=== PATIENT | female | born 1955 | race Hispanic/Latino ===

== ENCOUNTER 2020-05-26 02:34 | Emergency (ER) | payer BC ==
[2020-05-26] MEDS ORDERED: SODIUM CHLORIDE 0.9% 1000 ML 1,000 ML IV ONE (03:07)
[2020-05-26] MEDS ORDERED: METOPROLOL TARTRATE 5 MG/5 ML INJ IV ONE (03:07)
--- NOTE | 2020-05-26 03:13 | Emergency Department Report ---
HPI - General Chief Complaint: Chest Pain Time Seen by Provider: 05/26/20 02:55 - HPI HPI: Room 25 The patient is a 64-year-old female present with a chief complaint of SVT. The patient states she was in her usual state of health this evening when she turned over in bed she began feeling her heartbeat quickly. The patient has a history of SVT and states her last episode occurred approximately 2012. Patient states she is been compliant with all of her medication. The patient attempted vagal maneuvers at home but they were unsuccessful so she eventually called 911. EMS arrived and found the patient tachycardic with a heart rate of 200 bpm. EMS administered adenosine 12 mg IV and SVT broke and the patient's heart rate decreased to 112. Patient states she feels much better currently denies chest pain or shortness of breath. Patient denies any complaints ED Past Medical Hx - Past Medical History Previous Medical History?: Yes Hx Hypertension: Yes Hx Diabetes: Yes Hx Asthma: Yes Additional medical history: SVT, - Surgical History Additional Surgical History: Tonsillectomy, wisdom tooth extraction - Family History Family history: no significant - Social History Smoking Status: Never Smoker Substance Use Type: None (Denies illicit drug use), Alcohol (Rarely) ED Review of Systems ROS: Stated complaint: SVT/SOB Other details as noted in HPI Constitutional: no symptoms reported Eyes: denies: eye pain ENT: denies: throat pain Respiratory: denies: shortness of breath Cardiovascular: palpitations Endocrine: no symptoms reported Gastrointestinal: denies: abdominal pain Genitourinary: denies: dysuria Musculoskeletal: denies: back pain Skin: denies: lesions Neurological: denies: headache Physical Exam - Physical Exam Vital Signs: Vital Signs 05/26/20 05/26/20 02:41 02:42 Temperature 98.5 F Pulse Rate 112 H Respiratory 20 22 Rate Blood Pressure 129/41 [Right] O2 Sat by Pulse 98 Oximetry Physical Exam: GENERAL: The patient is well-developed well-nourished female lying on stretcher not appearing to be in acute distress. [] HEENT: Normocephalic. Atraumatic. Extraocular motions are intact. Patient has moist mucous membranes. NECK: Supple. Trachea midline CHEST/LUNGS: Clear to auscultation. There is no respiratory distress noted. HEART/CARDIOVASCULAR: Regular. There is tachycardia. There is no gallop rub or murmur. ABDOMEN: Abdomen is soft, nontender. Patient has normal bowel sounds. There is no abdominal distention. SKIN: There is no rash. There is no edema. There is no diaphoresis. NEURO: The patient is awake, alert, and oriented. The patient is cooperative. The patient has normal speech MUSCULOSKELETAL: There is no evidence of acute injury. ED Course Vital Signs 05/26/20 05/26/20 02:41 02:42 Temperature 98.5 F Pulse Rate 112 H Respiratory 20 22 Rate Blood Pressure 129/41 [Right] O2 Sat by Pulse 98 Oximetry ED Medical Decision Making - Lab Data Result diagrams: 05/26/20 03:13 05/26/20 03:13 - EKG Data -: EKG Interpreted by Me EKG shows normal: sinus rhythm Rate: tachycardia (112 bpm) - EKG Data When compared to previous EKG there are: previous EKG unavailable Interpretation: other (No ischemic changes seen) - Differential Diagnosis SVT, DKA, dehydration Critical care attestation.: If time is entered above; I have spent that time in minutes in the direct care of this critically ill patient, excluding procedure time. ED Disposition Clinical Impression: SVT (supraventricular tachycardia), Hypomagnesemia Disposition: DC-01 TO HOME OR SELFCARE Is pt being admited?: No Does the pt Need Aspirin: No Condition: Stable Instructions: Hypomagnesemia, Supraventricular Tachycardia, Adult, [id number] Additional Instructions: Return to the emergency department should you develop worsening symptoms, in ability to tolerate food or liquids, high fever or any other concerns Referrals: RUTHY DUENAS MD [Primary Care Provider] - 3-5 Days Time of Disposition: 04:32
[2020-05-26 03:42] LABS: Basophils % (Auto) 0.9 % (0.0-1.8); Eosinophils # (Auto) 0.2 K/mm3 (0.0-0.4); Hemoglobin 14.1 gm/dl (10.1-14.3); Lymphocytes # (Auto) 1.3 K/mm3 (1.2-5.4); Lymphocytes % (Auto) 25.9 % (13.4-35.0); Monocytes # (Auto) 0.4 K/mm3 (0.0-0.8); Monocytes % (Auto) 8.4 % (0.0-7.3)
[2020-05-26 04:12] LABS: Free T4 (Free Thyroxine) 1.17 ng/dL (0.76-1.46)
[2020-05-26 04:14] LABS: Creatine Kinase MB 1.7 ng/mL (0.0-4.0)
[2020-05-26 04:16] LABS: Blood Urea Nitrogen 8 mg/dL (7-17); Calcium 9.1 mg/dL (8.4-10.2); Hemolysis Index 11
[2020-05-26] MEDS ORDERED: MAGNESIUM SULFATE 2 GM/50 ML BAG IV ONE (04:19)
[2020-05-26 04:23] LABS: BUN/Creatinine Ratio 11
[2020-05-26 04:26] LABS: Hematocrit 42.1 % (30.3-42.9); Mean Corpuscular HGB Conc 34 % (30-34); Mean Corpuscular Volume 94 fl (79-97); Platelet Count 103 K/mm3 (140-440); Red Blood Count 4.48 M/mm3 (3.65-5.03); Red Cell Distribution Width 15.4 % (13.2-15.2)
[2020-05-26 06:41] VITALS: BP 102/47
== END 2020-05-26 06:05 | disposition home or self-care (01) ==
LOC: ED 02:34
DX: I47.1 Supraventricular tachycardia (principal); E83.42 Hypomagnesemia; I10 Essential (primary) hypertension; E11.9 Type 2 diabetes mellitus without complications; J45.909 Unspecified asthma, uncomplicated; Z79.899 Other long term (current) drug therapy
CPT/HCPCS: 36415; 80048; 82550; 82553; 82805; 83735; 84439; 84443; 84484; 85025; 93005; 96361; 96365; 96375; 99284; J3475; J7030

== ENCOUNTER 2021-10-15 17:35 | Inpatient (IN) | payer BC, MEDICARE ==
[2021-10-15] MEDS ORDERED: fentaNYL 100 MCG/2 ML INJ ONE (17:48)
[2021-10-15] MEDS ORDERED: HEPARIN 10,000 UNITS/10 ML VIAL IV PRN (17:56)
[2021-10-15] MEDS ORDERED: AMIODARONE 900 MG in DEXTROSE 5% IN WATER 482 ML IV SCH (18:00)
[2021-10-15] MEDS: AMIODARONE 150 MG/3 ML INJ IV ONE ×3 (18:11→19:05)
[2021-10-15] MEDS ORDERED: SODIUM CHLORIDE 0.9% 1000 ML 1,000 ML IV ONE ×2 (18:21)
[2021-10-15 18:34] LABS: Basophils % (Auto) 0.7 % (0.0-1.8); Eosinophils # (Auto) 0.1 K/mm3 (0.0-0.4); Eosinophils % (Auto) 3.2 % (0.0-4.3); Hematocrit 41.2 % (30.3-42.9); Lymphocytes # (Auto) 1.1 K/mm3 (1.2-5.4); Lymphocytes % (Auto) 25.1 % (13.4-35.0); Mean Corpuscular HGB Conc 34 % (30-34); Mean Corpuscular Volume 93 fl (79-97); Monocytes # (Auto) 0.4 K/mm3 (0.0-0.8); Platelet Count 104 K/mm3 (140-440); Red Blood Count 4.43 M/mm3 (3.65-5.03); Red Cell Distribution Width 14.5 % (13.2-15.2)
[2021-10-15 18:57] LABS: Alanine Aminotransferase 27 units/L (7-56); Albumin 3.9 g/dL (3.9-5); BUN/Creatinine Ratio 19; Blood Urea Nitrogen 15 mg/dL (7-17); Calcium 9.6 mg/dL (8.4-10.2); Hemolysis Index 21
--- NOTE | 2021-10-15 19:29 | Emergency Department Report ---
ED Palpitations HPI - General Chief Complaint: Arrhythmia/Palpitations Stated Complaint: SVT Time Seen by Provider: 10/15/21 17:54 Source: patient, EMS Mode of arrival: Stretcher Limitations: No Limitations - History of Present Illness Initial Comments: Patient is 66-year-old female with history of paroxysmal SVT brought in by EMS with complaint of palpitations. EMS reports patient heart rate in the 180s on arrival and subsequently gave her 6 mg followed by 12 mg of adenosine without conversion to sinus rhythm. She reports 3 prior episodes of SVT that converted with either vagal maneuvers or with adenosine. She is followed by [facility]. Takes Cardizem nightly. - Related Data Allergies Allergy/AdvReac Type Severity Reaction Status Date / Time No Known Allergies Allergy Unverified 05/26/20 02:49 ED Review of Systems ROS: Stated complaint: SVT Other details as noted in HPI Constitutional: denies: chills, fever Respiratory: denies: cough, shortness of breath, wheezing Cardiovascular: palpitations Gastrointestinal: denies: abdominal pain, nausea, diarrhea Genitourinary: denies: urgency, dysuria, discharge Musculoskeletal: denies: back pain, joint swelling, arthralgia Skin: denies: rash, lesions Neurological: denies: headache, weakness, paresthesias Psychiatric: denies: anxiety, depression ED Past Medical Hx - Past Medical History Hx Hypertension: Yes Hx Diabetes: Yes Hx Asthma: Yes Additional medical history: SVT, - Surgical History Additional Surgical History: Tonsillectomy, wisdom tooth extraction - Social History Smoking Status: Never Smoker ED Physical Exam - General Limitations: No Limitations General appearance: alert, obese, other - Head Head exam: Present: atraumatic, normocephalic - Neck Neck exam: Present: normal inspection - Respiratory Respiratory exam: Present: normal lung sounds bilaterally. Absent: respiratory distress - Cardiovascular Cardiovascular Exam: Present: normal rhythm, tachycardia, normal heart sounds - GI/Abdominal GI/Abdominal exam: Present: soft. Absent: distended, tenderness - Neurological Exam Neurological exam: Present: alert, oriented X3 - Psychiatric Psychiatric exam: Present: normal affect, normal mood - Skin Skin exam: Present: warm, dry, intact, normal color ED Course Vital Signs 10/15/21 10/15/21 10/15/21 17:36 17:58 18:00 Temperature 98.2 F Pulse Rate 188 H 167 H 149 H Respiratory 22 24 20 Rate Blood Pressure 102/52 Blood Pressure 108/68 [Left] O2 Sat by Pulse 98 100 100 Oximetry 10/15/21 10/15/21 10/15/21 18:04 18:15 18:30 Temperature 98.5 F Pulse Rate 142 H 144 H 131 H Respiratory 18 22 14 Rate Blood Pressure 102/52 78/54 101/53 Blood Pressure [Left] O2 Sat by Pulse 99 99 100 Oximetry 10/15/21 10/15/21 10/15/21 18:41 18:45 19:01 Temperature Pulse Rate 132 H 137 H 148 H Respiratory 18 17 17 Rate Blood Pressure 129/54 123/57 Blood Pressure 101/53 [Left] O2 Sat by Pulse 99 100 100 Oximetry 10/15/21 19:11 Temperature Pulse Rate 148 H Respiratory 18 Rate Blood Pressure Blood Pressure 123/57 [Left] O2 Sat by Pulse 99 Oximetry ED Medical Decision Making - Lab Data Result diagrams: 10/15/21 18:20 10/15/21 18:20 - EKG Data -: EKG Interpreted by Me (Felicia fib with RVR, rate 157) EKG shows normal: QRS complexes, ST-T waves Rate: tachycardia - Medical Decision Making Cardioversion attempted at 100 J and was unsuccessful. Patient is hemody namically stable. She was given 150 mg amiodarone bolus and started on infusion. I contacted Dr. Fajardo (cardiology) who will consult. TSH is barely elevated at 4.24. Will admit to hospitalist Critical care attestation.: If time is entered above; I have spent that time in minutes in the direct care of this critically ill patient, excluding procedure time. ED Disposition Clinical Impression: Atrial fibrillation with RVR Disposition: ADMITTED INPATIENT Is pt being admited?: Yes Does the pt Need Aspirin: No Condition: Stable
[2021-10-15] MEDS ORDERED: ALBUTEROL 2.5 MG/3 ML NEBU IH PRN (20:17)
[2021-10-15] MEDS ORDERED: oxyCODONE /ACETAMINOPHEN 5-325MG TAB PO PRN (20:17)
[2021-10-15] MEDS ORDERED: MORPHINE 4 MG/1 ML INJ IV PRN (20:17)
[2021-10-15] MEDS ORDERED: ACETAMINOPHEN 325 MG TAB PO PRN (20:17)
--- NOTE | 2021-10-15 20:20 | History and Physical Report ---
History of Present Illness Chief complaint: My heart is pounding in my chest History of present illness: 66 YO Female with Obesity Hypoventilation Syndrome, SVT, HTN, DM, Metabolic Syndrome, Mild Intermittent Asthma presents to ED for evaluation. Patient reports "my heart is pounding my chest". Patient states that she has experienced a sudden onset of chest palpitations, generalized weakness, decreased exercise tolerance, and dyspnea on exertion. EMS was notified and upon arrival the patient was found to be in distress with a heart rate in the 180s. The patient was treated with adenosine without conversion to normal sinus rhythm. Patient transported to [facility] for further care and evaluation of the aforementioned symptoms. The patient was seen and evaluated in the emergency department. All lab and imaging studies reviewed. Patient found to have atrial fibrillation with rapid ventricular response on EKG. Patient also found to have clinical symptoms consistent with diastolic CHF. Patient admitted to [facility] and initiated on amiodarone drip as well as a heparin drip. Cardiology team consulted in ED. Patient cardiac recommendations were initiated. Patient denies fever, chills, productive cough, skin rash, recent contact, unilateral leg swelling, prolonged travel/immobility, calf pain, individual/family history of DVT/PE/bleeding/blood clotting disorders, or known exposure to COVID-19. No prior admission for review. No medication listed at time of admission for reconciliation. Advanced care planning conducted in ED. Past History Past Medical History: diabetes, hypertension, hyperlipidemia Past Surgical History: tonsillectomy Social history: single. denies: smoking, alcohol abuse, prescription drug abuse Family history: diabetes, hypertension Medications and Allergies Allergies Allergy/AdvReac Type Severity Reaction Status Date / Time No Known Allergies Allergy Unverified 05/26/20 02:49 Active Meds: Active Medications Heparin Sodium (Porcine) (Heparin 10,000 Units/10 Ml Vial) 4,700 unit 40 unit/kg (4700 unit) IV Q6H PRN PRN Reason: Anti-Xa Assay<0.1 units/ml Amiodarone HCl 900 mg/ (Dextrose) 500 mls @ 33.333 mls/hr IV DIRECT CANDI; Protocol Last Admin: 10/15/21 19:05 Dose: 1 mg/min, 33.333 mls/hr Review of Systems Constitutional: no weight loss, no weight gain, no chills, no sweats Ears, nose, mouth and throat: no ear pain, no nasal congestion Breasts: no change in shape, no swelling Cardiovascular: palpitations, dyspnea on exertion, decreased exercise tolerance, no chest pain Respiratory: no cough, no cough with sputum Gastrointestinal: no abdominal pain, no nausea, no vomiting, no diarrhea Genitourinary Female: no pelvic pain, no flank pain, no dysuria, no urinary frequency, no urgency Rectal: no pain, no incontinence, no bleeding Musculoskeletal: no neck stiffness, no shooting arm pain, no arm numbness/tingling Integumentary: no rash, no pruritis, no redness, no wounds Neurological: no head injury, no paralysis, no weakness, no tingling, no seizures, no syncope, no tremors Psychiatric: no anxiety, no memory loss, no change in appetite, no disorientation Endocrine: no cold intolerance, no heat intolerance, no flushing Hematologic/Lymphatic: no easy bruising, no lymphadenopathy Allergic/Immunologic: no allergic rhinitis, no wheezing, no anaphylaxis, no angioedema Exam - Constitutional Vitals: Temp Pulse Resp BP Pulse Ox 98.5 F 148 H 18 123/57 99 10/15/21 18:04 10/15/21 19:11 10/15/21 19:11 10/15/21 19:11 10/15/21 19:11 General appearance: Present: mild distress - EENT Eyes: Present: PERRL ENT: hearing intact, clear oral mucosa - Neck Neck: Present: supple, normal ROM - Respiratory Respiratory effort: normal Respiratory: bilateral: CTA - Cardiovascular Rhythm: irregularly irregular Heart Sounds: Present: S1 & S2. Absent: rub, click - Extremities Extremities: pulses symmetrical, No edema Peripheral Pulses: within normal limits - Abdominal General gastrointestinal: Present: soft, non-tender, non-distended, normal bowel sounds Female genitourinary: Present: normal - Integumentary Integumentary: Present: clear, warm, dry - Musculoskeletal Musculoskeletal: gait normal, strength equal bilaterally - Psychiatric Psychiatric: appropriate mood/affect, intact judgment & insight - Neurologic Neurologic: CNII-XII intact, moves all extremities HEART Score - HEART Score Troponin: Troponin T < 0.010 ng/mL (0.00-0.029) 10/15/21 18:20 Results - Labs CBC & Chem 7: 10/15/21 18:20 10/15/21 18:20 Labs: Abnormal lab results 10/15/21 10/15/21 10/15/21 Range/Units 18:20 18:20 18:20 WBC 4.3 L (4.5-11.0) K/mm3 Plt Count 104 L (140-440) K/mm3 [place] % (Auto) 10.0 H (0.0-7.3) % Lymph # (Auto) 1.1 L (1.2-5.4) K/mm3 Carbon Dioxide 17 L (22-30) mmol/L Glucose 245 H (65-100) mg/dL TSH 4.240 H (0.270-4.200) mlU/mL Assessment and Plan - Patient Problems (1) Atrial fibrillation with RVR Current Visit: No Status: Acute Plan to address problem: Therapeutic anticoagulation, rate control, amiodarone drip, admit to IMCU, telemetry monitoring, cardiology team consulted in ED. Further care and evaluation as per cardiology team. (2) Diastolic CHF Current Visit: Yes Status: Acute Qualifiers: Heart failure chronicity: acute Qualified Code(s): I50.31 - Acute diastolic (congestive) heart failure Plan to address problem: Strict I's/O, monitor urine output every shift, daily weight, afterload reduction, blood pressure control, echocardiogram ordered and pending at time of admission. Cardiology team consulted. (3) Obesity hypoventilation syndrome Current Visit: Yes Status: Acute Plan to address problem: Balanced diet, increase physical activity at discharge, outpatient pulmonary follow-up for sleep study. (4) Hypertension Current Visit: Yes Status: Acute Qualifiers: Hypertension type: primary hypertension Qualified Code(s): I10 - Essential (primary) hypertension Plan to address problem: Monitor blood pressure every shift, continue medical management. (5) Diabetes Current Visit: Yes Status: Acute Plan to address problem: Consistent carbohydrate diet, Accu-Chek, insulin protocol, hypoglycemia protocol. (6) Metabolic syndrome Current Visit: Yes Status: Acute Plan to address problem: . Balanced diet, weight reduction, increase physical activity discharge, balanced diet, risk factor reduction. (7) DVT prophylaxis Current Visit: Yes Status: Acute Plan to address problem: SCD bilateral lower extremities while in bed, continue therapeutic anticoagulation. (8) Advance care planning Current Visit: Yes Status: Acute Plan to address problem: Disease education data, care plan discussed, diagnoses discussed, prognosis discussed, patient is full code. Patient knowledges understanding agreement with care plan, +30 minutes. (9) Preventative health care Current Visit: Yes Status: Acute Plan to address problem: Patient counseled regarding weight reduction, balanced diet, increase physical activity at discharge, outpatient follow-up with primary care physician for all age and risk factor appropriate screening test. +30 minutes.
[2021-10-15] MEDS ORDERED: DEXTROSE 50% IN WATER (25GM) 50 ML SYRINGE IV PRN (20:58)
[2021-10-15] MEDS ORDERED: dilTIAZem 25 MG/5 ML INJ IV ONE (21:56)
[2021-10-15] MEDS: dilTIAZem/D5W 100 MG/100 ML BAG IV SCH ×2 (22:39→23:31)
[2021-10-15] MEDS: INSULIN LISPRO 100 UNIT/ML SUB-Q SCH (22:52)
[2021-10-16] MEDS ORDERED: dilTIAZem 25 MG/5 ML INJ IV ONE (00:05)
[2021-10-16 04:21] LABS: Blood Urea Nitrogen 10 mg/dL (7-17); Calcium 8.9 mg/dL (8.4-10.2); Hematocrit 39.4 % (30.3-42.9); Hemoglobin 13.3 gm/dl (10.1-14.3); Hemolysis Index 11; Mean Corpuscular HGB Conc 34 % (30-34); Mean Corpuscular Volume 93 fl (79-97); Red Blood Count 4.25 M/mm3 (3.65-5.03)
[2021-10-16 04:22] LABS: Eosinophils % (Auto) 3.6 % (0.0-4.3); Lymphocytes % (Auto) 36.7 % (13.4-35.0); Monocytes % (Auto) 8.4 % (0.0-7.3); Platelet Count 90 K/mm3 (140-440); Red Cell Distribution Width 14.6 % (13.2-15.2)
[2021-10-16 04:23] LABS: Basophils % (Auto) 0.6 % (0.0-1.8); Eosinophils # (Auto) 0.2 K/mm3 (0.0-0.4); Lymphocytes # (Auto) 1.6 K/mm3 (1.2-5.4); Monocytes # (Auto) 0.4 K/mm3 (0.0-0.8)
[2021-10-16 04:28] LABS: BUN/Creatinine Ratio 17
[2021-10-16] MEDS ORDERED: HEPARIN 10,000 UNITS/10 ML VIAL IV PRN (08:00)
[2021-10-16] MEDS ORDERED: HEPARIN/ 0.45% NACL DRIP 25,000 UNIT/500 ML BAG IV SCH (08:00)
[2021-10-16] MEDS: INSULIN LISPRO 100 UNIT/ML SUB-Q SCH ×4 (08:05→21:34)
[2021-10-16] MEDS ORDERED: MAGNESIUM SULFATE 2 GM/50 ML BAG IV ONE (09:00)
[2021-10-16 10:40] LABS: Hemoglobin 12.9 gm/dl (10.1-14.3)
[2021-10-16 10:53] LABS: Hematocrit 39.4 % (30.3-42.9)
[2021-10-16 10:54] LABS: INR 1.09 (0.87-1.13)
[2021-10-16 10:55] LABS: Partial Thromboplastin Time 37.3 Sec. (24.2-36.6)
--- NOTE | 2021-10-16 12:47 | Consultation ---
History of Present Illness Consult date: 10/16/21 Requesting physician: TRANG ALVARADO Consult reason: atrial fibrillation History of present illness: Pt is a 66-year-old female with a hx of PSVT, asthma, HTN, HLD, DM2, and morbid obesity/ROBER who presented with complaints of palpitations. She was initially thought to be in SVT due to her history but did not respond to adenosine or DCCV according to ER documentation. ECG is consistent with AF with RVR. She was briefly on an IV Amiodarone drip with no improvement. Pt was later started on IV Cardizem and has since converted to SR 70s on tele. No cardiac complaints. Pt is followed in our office by Dr. Wang. Past History Past Medical History: diabetes, hypertension, hyperlipidemia, other (ROBER, PSVT). denies: atrial fib Past Surgical History: denies: valve replacement, CABG, PTCA Social history: . denies: smoking, alcohol abuse Family history: hypertension Medications and Allergies Allergies Allergy/AdvReac Type Severity Reaction Status Date / Time No Known Allergies Allergy Unverified 05/26/20 02:49 Home Medications Medication Instructions Recorded Confirmed Last Taken Type Glimepiride 4 mg PO BID 10/16/21 10/16/21 10/15/21 12:00 History Telmisartan Tab 40 mg PO QAM 10/16/21 10/16/21 10/15/21 12:00 History Trulicity 10/16/21 10/08/21 History metFORMIN [Glucophage] 500 mg PO BID 10/16/21 10/16/21 10/15/21 12:00 History Active Meds: Active Medications Acetaminophen (Acetaminophen 325 Mg Tab) 650 mg PO Q6H PRN PRN Reason: Pain MILD(1-3)/Fever >100.5/CRAIN Albuterol (Albuterol 2.5 Mg/3 Ml Nebu) 2.5 mg IH Q3HRT PRN PRN Reason: Shortness Of Breath Dextrose (Dextrose 50% In Water (25gm) 50 Ml Syringe) 0 ml IV Q30MIN PRN; Protocol PRN Reason: Hypoglycemia Heparin Sodium (Porcine) (Heparin 10,000 Units/10 Ml Vial) 4,700 unit 40 unit/kg (4700 unit) IV Q6H PRN PRN Reason: Anti-Xa Assay<0.1 units/ml Diltiazem HCl (Cardizem/D5w 100mg/100ml) 100 mg in 100 mls @ 5 mls/hr IV TITR [facility]; Protocol Last Titration: 10/16/21 03:04 Dose: 0 mg/hr, 0 mls/hr Insulin Human Lispro (Insulin Lispro 100 Unit/Ml) 0 unit SUB-Q ACHS [facility]; Protocol Last Admin: 10/16/21 11:58 Dose: Not Given Metoprolol Tartrate (Metoprolol Tartrate 50 Mg Tab) 50 mg PO BID [facility] Morphine Sulfate (Morphine 4 Mg/1 Ml Inj) 2 mg IV Q12H PRN PRN Reason: Pain , Severe (7-10) Oxycodone/Acetaminophen (Oxycodone /Acetaminophen 5-325mg Tab) 1 tab PO Q6H PRN PRN Reason: Pain, Moderate (4-6) Sodium Chloride (Sodium Chloride 0.9% 10 Ml Flush Syringe) 10 ml IV BID [facility] Last Admin: 10/16/21 09:21 Dose: 10 ml Sodium Chloride (Sodium Chloride 0.9% 10 Ml Flush Syringe) 10 ml IV PRN PRN PRN Reason: LINE FLUSH Review of Systems Constitutional: no fever, no chills Ears, nose, mouth and throat: no nasal congestion, no sore throat Cardiovascular: palpitations, no chest pain, no orthopnea, no edema, no syncope, no lightheadedness, no shortness of breath Respiratory: no cough, no shortness of breath Gastrointestinal: no nausea, no vomiting Genitourinary Female: no dysuria Musculoskeletal: no myalgias Integumentary: redness (chronic unilateral leg redness), no rash, no wounds Neurological: no numbness, no tingling, no seizures, no syncope, no vertigo, no headaches Endocrine: no cold intolerance, no heat intolerance Hematologic/Lymphatic: no easy bruising, no easy bleeding Allergic/Immunologic: no anaphylaxis Physical Examination Vital Signs Temp Pulse Resp BP Pulse Ox 98.2 F 188 H 22 108/68 98 10/15/21 17:36 10/15/21 17:36 10/15/21 17:36 10/15/21 17:36 10/15/21 17:36 General appearance: no acute distress HEENT: Positive: EOMI, Normocephaly Neck: Negative: JVD/HJR Cardiac: Positive: Reg Rate and Rhythm, S1/S2 Lungs: Positive: Decreased Breath Sounds Neuro: Positive: Grossly Intact Abdomen: Positive: Soft. Negative: Tender Skin: Negative: Rash Musculoskeletal: No Pain Extremities: Present: upper extr. pulses. Absent: edema Results 10/16/21 09:55 10/16/21 03:35 Cardiac Enzymes 10/15/21 Range/Units 18:20 AST 28 (5-40) units/L Coagulation 10/16/21 Range/Units 09:55 PT 15.7 H (12.2-14.9) Sec. INR 1.09 (0.87-1.13) APTT 37.3 H (24.2-36.6) Sec. CBC 10/15/21 10/16/21 10/16/21 Range/Units 18:20 03:35 09:55 WBC 4.3 L 4.5 (4.5-11.0) K/mm3 RBC 4.43 4.25 (3.65-5.03) M/mm3 Hgb 14.0 13.3 12.9 (10.1-14.3) gm/dl Hct 41.2 39.4 39.4 (30.3-42.9) % Plt Count 104 L 90 L 82 L (140-440) K/mm3 Lymph # (Auto) 1.1 L 1.6 (1.2-5.4) K/mm3 [place] # (Auto) 0.4 0.4 (0.0-0.8) K/mm3 Eos # (Auto) 0.1 0.2 (0.0-0.4) K/mm3 Baso # (Auto) 0.0 0.0 (0.0-0.1) K/mm3 Comprehensive Metabolic Panel 10/15/21 10/16/21 Range/Units 18:20 03:35 Sodium 140 143 (137-145) mmol/L Potassium 4.2 3.9 (3.6-5.0) mmol/L Chloride 106.4 110.7 H (98-107) mmol/L Carbon Dioxide 17 L 19 L (22-30) mmol/L BUN 15 10 (7-17) mg/dL Creatinine 0.8 0.6 (0.6-1.2) mg/dL Glucose 245 H 145 H (65-100) mg/dL Calcium 9.6 8.9 (8.4-10.2) mg/dL AST 28 (5-40) units/L ALT 27 (7-56) units/L Alkaline Phosphatase 84 (35-129) units/L Total Protein 6.4 (6.3-8.2) g/dL Albumin 3.9 (3.9-5) g/dL - Imaging and Cardiology Echo: report reviewed EKG: report reviewed, image reviewed EKG interpretations - Telemetry EKG Rhythm: Sinus Rhythm - EKG Supraventricular dysrhythmia: atrial fibrillation Assessment and Plan Assessment: New Onset AF with RVR H/o PSVT HTN HLD DM2 Morbid Obesity ROBER H/o Asthma Plan: Maintaining sinus rhythm. Initiate PO Lopressor 50mg BID. Will also resume PO Cardizem in the AM if BP permits. Discontinue home Telmisartan to allow for titration of BB/CCB. Start Eliquis 5mg BID for AF/CVA prophylaxis. Stable for transfer to tele floor. Pt seen in conjunction with Dr. Fajardo, who agrees with the assessment and plan of care. - Patient Problems (1) Atrial fibrillation with RVR Current Visit: Yes Status: Acute
--- NOTE | 2021-10-16 13:19 | Progress Note ---
<NATHAN RICHARD - Last Filed: 10/16/21 18:53> Assessment and Plan Assessment and plan: This is a 66-year-old female with known past medical history of SVT, HTN, DM, mild intermittent asthma, and obesity admitted for SVT and new onset atrial fibrillation with RVR Hospital Course to Date: 10/16: Converted to SR, off the cardizem gtt this am. VSS. 2D echo pending. Per cardio plan to added BB and resume patient home cardizem and initiate PO Eliquis for anticoagulation. Worsen thrombocytopenia noted, per patient this chronic her PCP has been monitoring it. LLE swelling and redness also appreciated. Per patient swelling and redness is somewhat new. She reported that she injured her LLE last year s/p a fall. The extremity was swollen then, however, it resolved after some time. She noticed the swelling and redness from her LLE again within the last few weeks. BLE doppler ordered to r/o DVT. D/w Cardio, patient is stable for transfer to Telemetry. Assessment and Plan #New Onset Atrial Fibrillation with RVR #Supraventricular Tachycardia(SVT) #Hypertension - Presented with chest palpitations, generalized weakness, decreased exercise tolerance, and dyspnea on exertion - Was found in SVT in the ED, HR in the 180s. X2 doses of adenosine and cardiove rsion was unsuccessful - EKG revealed Afib with RVR. S/p Amio bolus and cardizem gtt - Patient Converted to SR this am, HR in the 70-80s. VSS - Cardiology consulted, appreciate recommendations - Per cardio plan to added BB and resume patient home cardizem - PO Eliquis initiated for anticoagulation - Continue blood pressure monitor per protocol - Maintain SBP less than 160 - 2D echo pending #Thrombocytopenia(POA) - Per patient this is chronic, her PCP has been monitoring it - Plt count dropped this am - No s/s of any active bleeding - H&H stable - Will continue to trend platelets and monitor H&H - PO Eliquis initiated for new onset Afib with RVR #Left Lower Extremity Redness and Swelling - LLE is swelling and red, warm to touch. - She reported that she injured her LLE last year s/p a fall. The extremity was swollen then, however, it resolved after some time. She noticed the swelling and redness from her LLE again within the last few weeks. - BLE dopper ordered to r/o DVT #Type 2 Diabetes Mellitus - Resume home metformin - BG check and SSI ACHS - Avoid hypoglycemia #Obesity Hypoventilation Syndrome - Balanced diet, risk factor reduction. - weight reduction- increase physical activity discharge - Outpatient pulmonary follow-up for sleep study. #GI/DVT Prophylaxis - PPI- Pecid - PO Eliquis #Advance Care Planning - Disease education data, care plan, diagnoses, and prognosis were discussed with patient at the bedside. Patient is a FULL code. Patient acknowledged understanding and agreed with current care plan. The high probability of a clinically significant, sudden or life threatening deterioration of the [multiple] system(s) required my full and direct attention, intervention and personal management. The aggregate critical care time was [60] minutes. This time is in addition to time spent performing reported procedures but includes the following: [x] Data Review and interpretation [x] Patient assessment and monitoring of vital signs [x] Documentation [x] Medication orders and management Disposition Plan: Transfer to Telemetry Total Time Spent with Patient (Minutes): 60 History Interval history: Patient seen and examined at the bedside. Fully AAO, on 2L NC, denied any pain nor any discomfort at this time. Cardizem gtt is off, SR noted on the monitor, HR in the 70-80s, VSS. LLE is swelling and red, warm to touch. Per patient swelling and redness is somewhat new. She reported that she injured her LLE last year s/p a fall. The extremity was swollen then, however, it resolved after some time. She noticed the swelling and redness from her LLE again within the last few weeks. Hospitalist Physical - Constitutional Vitals: Temp Pulse Resp BP Pulse Ox 99.4 F 87 21 138/53 98 10/16/21 08:00 10/16/21 09:31 10/16/21 09:31 10/16/21 09:31 10/16/21 09:21 General appearance: Present: no acute distress, well-nourished, obese - EENT Eyes: Present: PERRL, EOM intact ENT: hearing intact, clear oral mucosa - Neck Neck: Present: normal ROM - Respiratory Respiratory effort: normal Respiratory: bilateral: diminished - Cardiovascular Rhythm: regular Heart Sounds: Present: S1 & S2 - Extremities Extremities: no ischemia, pulses intact, pulses symmetrical, abnormal (LLE redness and swelling, warm to touch) Extremity abnormal: edema - Peripheral Assessment Left Lower Extremity Edema Type: Pitting Edema Degree: 3+ Capillary Refill: < 3 seconds Skin Temperature: Warm Generalized Edema Type: Non-pitting Edema Degree: 2+ Capillary Refill: < 3 seconds Skin Temperature: Warm Peripheral Pulses: within normal limits - Abdominal General gastrointestinal: soft, non-distended, normal bowel sounds - Integumentary Integumentary: Present: erythema (LLE, with swelling. Warm to touch) - Psychiatric Psychiatric: appropriate mood/affect, cooperative - Neurologic Neurologic: CNII-XII intact, moves all extremities - Allied Health Allied health notes reviewed: nursing, case management HEART Score - HEART Score Troponin: Troponin T < 0.010 ng/mL (0.00-0.029) 10/15/21 18:20 Results - Labs CBC & Chem 7: 10/16/21 09:55 10/16/21 03:35 Labs: Laboratory Last Values WBC 4.5 K/mm3 (4.5-11.0) 10/16/21 03:35 RBC 4.25 M/mm3 (3.65-5.03) 10/16/21 03:35 Hgb 12.9 gm/dl (10.1-14.3) 10/16/21 09:55 Hct 39.4 % (30.3-42.9) 10/16/21 09:55 MCV 93 fl (79-97) 10/16/21 03:35 MCH 31 pg (28-32) 10/16/21 03:35 MCHC 34 % (30-34) 10/16/21 03:35 RDW 14.6 % (13.2-15.2) 10/16/21 03:35 Plt Count 82 K/mm3 (140-440) L 10/16/21 09:55 Lymph % (Auto) 36.7 % (13.4-35.0) H 10/16/21 03:35 [place] % (Auto) 8.4 % (0.0-7.3) H 10/16/21 03:35 Eos % (Auto) 3.6 % (0.0-4.3) 10/16/21 03:35 Baso % (Auto) 0.6 % (0.0-1.8) 10/16/21 03:35 Lymph # (Auto) 1.6 K/mm3 (1.2-5.4) 10/16/21 03:35 [place] # (Auto) 0.4 K/mm3 (0.0-0.8) 10/16/21 03:35 Eos # (Auto) 0.2 K/mm3 (0.0-0.4) 10/16/21 03:35 Baso # (Auto) 0.0 K/mm3 (0.0-0.1) 10/16/21 03:35 Seg Neutrophils % 50.7 % (40.0-70.0) 10/16/21 03:35 Seg Neutrophils # 2.3 K/mm3 (1.8-7.7) 10/16/21 03:35 PT 15.7 Sec. (12.2-14.9) H 10/16/21 09:55 INR 1.09 (0.87-1.13) 10/16/21 09:55 APTT 37.3 Sec. (24.2-36.6) H 10/16/21 09:55 Sodium 143 mmol/L (137-145) 10/16/21 03:35 Potassium 3.9 mmol/L (3.6-5.0) 10/16/21 03:35 Chloride 110.7 mmol/L (98-107) H 10/16/21 03:35 Carbon Dioxide 19 mmol/L (22-30) L 10/16/21 03:35 Anion Gap 17 mmol/L 10/16/21 03:35 BUN 10 mg/dL (7-17) 10/16/21 03:35 Creatinine 0.6 mg/dL (0.6-1.2) 10/16/21 03:35 Estimated GFR > 60 ml/min 10/16/21 03:35 BUN/Creatinine Ratio 17 % 10/16/21 03:35 Glucose 145 mg/dL (65-100) H 10/16/21 03:35 POC Glucose 159 mg/dL (70-105) H 10/16/21 10:59 Calcium 8.9 mg/dL (8.4-10.2) 10/16/21 03:35 Magnesium 1.70 mg/dL (1.7-2.3) 10/15/21 18:20 Total Bilirubin 0.90 mg/dL (0.1-1.2) 10/15/21 18:20 AST 28 units/L (5-40) 10/15/21 18:20 ALT 27 units/L (7-56) 10/15/21 18:20 Alkaline Phosphatase 84 units/L (35-129) 10/15/21 18:20 Troponin T < 0.010 ng/mL (0.00-0.029) 10/15/21 18:20 Total Protein 6.4 g/dL (6.3-8.2) 10/15/21 18:20 Albumin 3.9 g/dL (3.9-5) 10/15/21 18:20 Albumin/Globulin Ratio 1.6 % 10/15/21 18:20 TSH 4.240 mlU/mL (0.270-4.200) H 10/15/21 18:20 Garduno/IV: Voiding Method External Female Catheter Active Medications - Current Medications Current Medications: Generic Name Dose Route Start Last Admin Trade Name Freq PRN Reason Stop Dose Admin Acetaminophen 650 mg 10/15/21 20:17 Acetaminophen 325 Mg Tab PO Q6H PRN Pain MILD(1-3)/Fever >100.5/CRAIN Albuterol 2.5 mg 10/15/21 20:17 Albuterol 2.5 Mg/3 Ml Nebu IH Q3HRT PRN Shortness Of Breath Dextrose 0 ml 10/15/21 20:58 Dextrose 50% In Water (25gm) 50 Ml Syringe IV Q30MIN PRN Hypoglycemia Protocol Insulin Human Lispro 0 unit 10/15/21 22:00 10/16/21 11:58 Insulin Lispro 100 Unit/Ml SUB-Q Not Given ACHS [facility] Protocol Metoprolol Tartrate 50 mg 10/16/21 22:00 Metoprolol Tartrate 50 Mg Tab PO BID [facility] Morphine Sulfate 2 mg 10/15/21 20:17 Morphine 4 Mg/1 Ml Inj IV Q12H PRN Pain , Severe (7-10) Oxycodone/Acetaminophen 1 tab 10/15/21 20:17 Oxycodone /Acetaminophen 5-325mg Tab PO Q6H PRN Pain, Moderate (4-6) Sodium Chloride 10 ml 10/15/21 22:00 10/16/21 09:21 Sodium Chloride 0.9% 10 Ml Flush Syringe IV 10 ml BID CANDI Administration Sodium Chloride 10 ml 10/15/21 20:17 Sodium Chloride 0.9% 10 Ml Flush Syringe IV PRN PRN LINE FLUSH Nutrition/Malnutrition Assess - Dietary Evaluation Nutrition/Malnutrition Findings: Nutrition Notes Start: 10/16/21 11:13 Freq: Status: Active Protocol: Document 10/16/21 11:13 TW (Rec: 10/16/21 11:15 TW [id number]) Nutrition Notes 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 Linwood Score is 19 . Will F/U upon further consult or LOS <FELIPE SOMERS - Last Filed: 10/17/21 07:27> Assessment and Plan Assessment and plan: I saw and evaluated the patient. I agree with the findings and the plan of care as documented in the Nurse Practitioner's~note, with the following corrections and additions. Hospitalist Physical - Constitutional Vitals: Temp Pulse Resp BP Pulse Ox 98.0 F 91 H 16 124/68 94 10/17/21 04:25 10/17/21 04:25 10/17/21 04:25 10/17/21 04:25 10/17/21 04:25 HEART Score - HEART Score Troponin: Troponin T < 0.010 ng/mL (0.00-0.029) 10/15/21 18:20 Results - Labs CBC & Chem 7: 10/17/21 04:43 10/17/21 04:43 Labs: Laboratory Last Values WBC 4.6 K/mm3 (4.5-11.0) 10/17/21 04:43 RBC 4.62 M/mm3 (3.65-5.03) 10/17/21 04:43 Hgb 13.9 gm/dl (10.1-14.3) 10/17/21 04:43 Hct 43.5 % (30.3-42.9) H 10/17/21 04:43 MCV 94 fl (79-97) 10/17/21 04:43 MCH 30 pg (28-32) 10/17/21 04:43 MCHC 32 % (30-34) 10/17/21 04:43 RDW 14.5 % (13.2-15.2) 10/17/21 04:43 Plt Count 98 K/mm3 (140-440) L 10/17/21 04:43 Lymph % (Auto) 36.7 % (13.4-35.0) H 10/16/21 03:35 [place] % (Auto) 8.4 % (0.0-7.3) H 10/16/21 03:35 Eos % (Auto) 3.6 % (0.0-4.3) 10/16/21 03:35 Baso % (Auto) 0.6 % (0.0-1.8) 10/16/21 03:35 Lymph # (Auto) 1.6 K/mm3 (1.2-5.4) 10/16/21 03:35 [place] # (Auto) 0.4 K/mm3 (0.0-0.8) 10/16/21 03:35 Eos # (Auto) 0.2 K/mm3 (0.0-0.4) 10/16/21 03:35 Baso # (Auto) 0.0 K/mm3 (0.0-0.1) 10/16/21 03:35 Seg Neutrophils % 50.7 % (40.0-70.0) 10/16/21 03:35 Seg Neutrophils # 2.3 K/mm3 (1.8-7.7) 10/16/21 03:35 PT 15.7 Sec. (12.2-14.9) H 10/16/21 09:55 INR 1.09 (0.87-1.13) 10/16/21 09:55 APTT 37.3 Sec. (24.2-36.6) H 10/16/21 09:55 Sodium 138 mmol/L (137-145) 10/17/21 04:43 Potassium 4.3 mmol/L (3.6-5.0) 10/17/21 04:43 Chloride 105.6 mmol/L (98-107) 10/17/21 04:43 Carbon Dioxide 21 mmol/L (22-30) L 10/17/21 04:43 Anion Gap 16 mmol/L 10/17/21 04:43 BUN 9 mg/dL (7-17) 10/17/21 04:43 Creatinine 0.6 mg/dL (0.6-1.2) 10/17/21 04:43 Estimated GFR > 60 ml/min 10/17/21 04:43 BUN/Creatinine Ratio 15 % 10/17/21 04:43 Glucose 146 mg/dL (65-100) H 10/17/21 04:43 POC Glucose 177 mg/dL (70-105) H 10/16/21 20:20 Calcium 8.9 mg/dL (8.4-10.2) 10/17/21 04:43 Phosphorus 4.00 mg/dL (2.5-4.5) 10/17/21 04:43 Magnesium 1.80 mg/dL (1.7-2.3) 10/17/21 04:43 Total Bilirubin 0.90 mg/dL (0.1-1.2) 10/15/21 18:20 AST 28 units/L (5-40) 10/15/21 18:20 ALT 27 units/L (7-56) 10/15/21 18:20 Alkaline Phosphatase 84 units/L (35-129) 10/15/21 18:20 Troponin T < 0.010 ng/mL (0.00-0.029) 10/15/21 18:20 Total Protein 6.4 g/dL (6.3-8.2) 10/15/21 18:20 Albumin 3.9 g/dL (3.9-5) 10/15/21 18:20 Albumin/Globulin Ratio 1.6 % 10/15/21 18:20 TSH 4.240 mlU/mL (0.270-4.200) H 10/15/21 18:20 Garduno/IV: Voiding Method Toilet Active Medications - Current Medications Current Medications: Generic Name Dose Route Start Last Admin Trade Name Freq PRN Reason Stop Dose Admin Acetaminophen 650 mg 10/15/21 20:17 Acetaminophen 325 Mg Tab PO Q6H PRN Pain MILD(1-3)/Fever >100.5/CRAIN Albuterol 2.5 mg 10/15/21 20:17 Albuterol 2.5 Mg/3 Ml Nebu IH Q3HRT PRN Shortness Of Breath Apixaban 5 mg 10/16/21 22:00 10/16/21 21:34 Apixaban 5 Mg Tab PO 5 mg Q12HR CANDI Administration Protocol Atorvastatin Calcium 10 mg 10/16/21 22:00 10/16/21 21:33 Atorvastatin 10 Mg Tab PO 10 mg QHS CANDI Administration Dextrose 0 ml 10/15/21 20:58 Dextrose 50% In Water (25gm) 50 Ml Syringe IV Q30MIN PRN Hypoglycemia Protocol Famotidine 20 mg 10/17/21 10:00 Famotidine 20 Mg Tab PO QDAY CANDI Insulin Human Lispro 0 unit 10/15/21 22:00 10/16/21 21:34 Insulin Lispro 100 Unit/Ml SUB-Q 1 unit ACHS CANDI Administration Protocol Metformin HCl 500 mg 10/16/21 22:00 10/16/21 21:33 Metformin 500 Mg Tab PO 500 mg BID CANDI Administration Metoprolol Tartrate 50 mg 10/16/21 22:00 10/16/21 21:34 Metoprolol Tartrate 50 Mg Tab PO 50 mg BID CANDI Administration Morphine Sulfate 2 mg 10/15/21 20:17 Morphine 4 Mg/1 Ml Inj IV Q12H PRN Pain , Severe (7-10) Oxycodone/Acetaminophen 1 tab 10/15/21 20:17 Oxycodone /Acetaminophen 5-325mg Tab PO Q6H PRN Pain, Moderate (4-6) Sodium Chloride 10 ml 10/15/21 22:00 10/16/21 21:34 Sodium Chloride 0.9% 10 Ml Flush Syringe IV 10 ml BID CANDI Administration Sodium Chloride 10 ml 10/15/21 20:17 Sodium Chloride 0.9% 10 Ml Flush Syringe IV PRN PRN LINE FLUSH Nutrition/Malnutrition Assess - Dietary Evaluation Nutrition/Malnutrition Findings: Nutrition Notes Start: 10/16/21 11:13 Freq: Status: Active Protocol: Document 10/16/21 11:13 TW (Rec: 10/16/21 11:15 TW [id number]) Nutrition Notes 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 Linwood Score is 19 . Will F/U upon further consult or LOS
[2021-10-16] MEDS: metFORMIN 500 MG TAB PO SCH (21:33)
[2021-10-16] MEDS: APIXABAN 5 MG TAB PO SCH (21:34)
[2021-10-16] MEDS: METOPROLOL TARTRATE 50 MG TAB PO SCH (21:34)
[2021-10-17 05:16] LABS: Hematocrit 43.5 % (30.3-42.9); Hemoglobin 13.9 gm/dl (10.1-14.3); Mean Corpuscular HGB Conc 32 % (30-34); Mean Corpuscular Volume 94 fl (79-97); Red Blood Count 4.62 M/mm3 (3.65-5.03); Red Cell Distribution Width 14.5 % (13.2-15.2)
[2021-10-17 05:31] LABS: Blood Urea Nitrogen 9 mg/dL (7-17); Calcium 8.9 mg/dL (8.4-10.2); Hemolysis Index 7
[2021-10-17 05:43] LABS: Platelet Count 98 K/mm3 (140-440)
[2021-10-17 05:50] LABS: BUN/Creatinine Ratio 15
--- NOTE | 2021-10-17 08:12 | Progress Note ---
Hospitalist Physical - Constitutional Vitals: Temp Pulse Resp BP Pulse Ox 98.0 F 91 H 16 124/68 96 10/17/21 04:25 10/17/21 04:25 10/17/21 04:25 10/17/21 04:25 10/17/21 08:00 General appearance: Present: no acute distress, well-nourished, obese HEART Score - HEART Score Troponin: Troponin T < 0.010 ng/mL (0.00-0.029) 10/15/21 18:20 Results - Labs CBC & Chem 7: 10/17/21 04:43 10/17/21 04:43 Labs: Laboratory Last Values WBC 4.6 K/mm3 (4.5-11.0) 10/17/21 04:43 RBC 4.62 M/mm3 (3.65-5.03) 10/17/21 04:43 Hgb 13.9 gm/dl (10.1-14.3) 10/17/21 04:43 Hct 43.5 % (30.3-42.9) H 10/17/21 04:43 MCV 94 fl (79-97) 10/17/21 04:43 MCH 30 pg (28-32) 10/17/21 04:43 MCHC 32 % (30-34) 10/17/21 04:43 RDW 14.5 % (13.2-15.2) 10/17/21 04:43 Plt Count 98 K/mm3 (140-440) L 10/17/21 04:43 Lymph % (Auto) 36.7 % (13.4-35.0) H 10/16/21 03:35 [place] % (Auto) 8.4 % (0.0-7.3) H 10/16/21 03:35 Eos % (Auto) 3.6 % (0.0-4.3) 10/16/21 03:35 Baso % (Auto) 0.6 % (0.0-1.8) 10/16/21 03:35 Lymph # (Auto) 1.6 K/mm3 (1.2-5.4) 10/16/21 03:35 [place] # (Auto) 0.4 K/mm3 (0.0-0.8) 10/16/21 03:35 Eos # (Auto) 0.2 K/mm3 (0.0-0.4) 10/16/21 03:35 Baso # (Auto) 0.0 K/mm3 (0.0-0.1) 10/16/21 03:35 Seg Neutrophils % 50.7 % (40.0-70.0) 10/16/21 03:35 Seg Neutrophils # 2.3 K/mm3 (1.8-7.7) 10/16/21 03:35 PT 15.7 Sec. (12.2-14.9) H 10/16/21 09:55 INR 1.09 (0.87-1.13) 10/16/21 09:55 APTT 37.3 Sec. (24.2-36.6) H 10/16/21 09:55 Sodium 138 mmol/L (137-145) 10/17/21 04:43 Potassium 4.3 mmol/L (3.6-5.0) 10/17/21 04:43 Chloride 105.6 mmol/L (98-107) 10/17/21 04:43 Carbon Dioxide 21 mmol/L (22-30) L 10/17/21 04:43 Anion Gap 16 mmol/L 10/17/21 04:43 BUN 9 mg/dL (7-17) 10/17/21 04:43 Creatinine 0.6 mg/dL (0.6-1.2) 10/17/21 04:43 Estimated GFR > 60 ml/min 10/17/21 04:43 BUN/Creatinine Ratio 15 % 10/17/21 04:43 Glucose 146 mg/dL (65-100) H 10/17/21 04:43 POC Glucose 156 mg/dL (70-105) H 10/17/21 07:27 Calcium 8.9 mg/dL (8.4-10.2) 10/17/21 04:43 Phosphorus 4.00 mg/dL (2.5-4.5) 10/17/21 04:43 Magnesium 1.80 mg/dL (1.7-2.3) 10/17/21 04:43 Total Bilirubin 0.90 mg/dL (0.1-1.2) 10/15/21 18:20 AST 28 units/L (5-40) 10/15/21 18:20 ALT 27 units/L (7-56) 10/15/21 18:20 Alkaline Phosphatase 84 units/L (35-129) 10/15/21 18:20 Troponin T < 0.010 ng/mL (0.00-0.029) 10/15/21 18:20 Total Protein 6.4 g/dL (6.3-8.2) 10/15/21 18:20 Albumin 3.9 g/dL (3.9-5) 10/15/21 18:20 Albumin/Globulin Ratio 1.6 % 10/15/21 18:20 TSH 4.240 mlU/mL (0.270-4.200) H 10/15/21 18:20 Garduno/IV: Voiding Method Toilet Active Medications - Current Medications Current Medications: Generic Name Dose Route Start Last Admin Trade Name Freq PRN Reason Stop Dose Admin Acetaminophen 650 mg 10/15/21 20:17 Acetaminophen 325 Mg Tab PO Q6H PRN Pain MILD(1-3)/Fever >100.5/CRAIN Albuterol 2.5 mg 10/15/21 20:17 Albuterol 2.5 Mg/3 Ml Nebu IH Q3HRT PRN Shortness Of Breath Apixaban 5 mg 10/16/21 22:00 10/16/21 21:34 Apixaban 5 Mg Tab PO 5 mg Q12HR CANDI Administration Protocol Atorvastatin Calcium 10 mg 10/16/21 22:00 10/16/21 21:33 Atorvastatin 10 Mg Tab PO 10 mg QHS CANDI Administration Dextrose 0 ml 10/15/21 20:58 Dextrose 50% In Water (25gm) 50 Ml Syringe IV Q30MIN PRN Hypoglycemia Protocol Famotidine 20 mg 10/17/21 10:00 Famotidine 20 Mg Tab PO QDAY CANDI Insulin Human Lispro 0 unit 10/15/21 22:00 10/16/21 21:34 Insulin Lispro 100 Unit/Ml SUB-Q 1 unit ACHS CANDI Administration Protocol Metformin HCl 500 mg 10/16/21 22:00 10/16/21 21:33 Metformin 500 Mg Tab PO 500 mg BID CANDI Administration Metoprolol Tartrate 50 mg 10/16/21 22:00 10/16/21 21:34 Metoprolol Tartrate 50 Mg Tab PO 50 mg BID CANDI Administration Morphine Sulfate 2 mg 10/15/21 20:17 Morphine 4 Mg/1 Ml Inj IV Q12H PRN Pain , Severe (7-10) Oxycodone/Acetaminophen 1 tab 10/15/21 20:17 Oxycodone /Acetaminophen 5-325mg Tab PO Q6H PRN Pain, Moderate (4-6) Sodium Chloride 10 ml 10/15/21 22:00 10/16/21 21:34 Sodium Chloride 0.9% 10 Ml Flush Syringe IV 10 ml BID CANDI Administration Sodium Chloride 10 ml 10/15/21 20:17 Sodium Chloride 0.9% 10 Ml Flush Syringe IV PRN PRN LINE FLUSH Nutrition/Malnutrition Assess - Dietary Evaluation Nutrition/Malnutrition Findings: Nutrition Notes Start: 10/16/21 11:13 Freq: Status: Active Protocol: Document 10/16/21 11:13 TW (Rec: 10/16/21 11:15 TW [id number]) Nutrition Notes Need 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 Linwood Score is 19 . Will F/U upon further consult or LOS
--- NOTE | 2021-10-17 08:29 | Discharge Summary ---
Providers - Providers Date of Admission: 10/15/21 20:17 Attending physician: FELIPE SOMERS MD 10/15/21 20:49 Consult to Physician [CONS] Routine Comment: Consulting Provider: RICARDA DENNEY Physician Instructions: Reason For Exam: Atrial fib Primary care physician: RON CRAMER Hospitalization Reason for admission: arrhythmia Condition: Stable Hospital course: This is a 66-year-old female with known past medical history of SVT, HTN, DM, mild intermittent asthma, and obesity admitted for SVT and new onset atrial fibrillation with RVR Hospital Course to Date: 10/16: Converted to SR, off the cardizem gtt this am. VSS. 2D echo pending. Per cardio plan to added BB and resume patient home cardizem and initiate PO Eliquis for anticoagulation. Worsen thrombocytopenia noted, per patient this chronic her PCP has been monitoring it. LLE swelling and redness also appreciated. Per patient swelling and redness is somewhat new. She reported that she injured her LLE last year s/p a fall. The extremity was swollen then, however, it resolved after some time. She noticed the swelling and redness from her LLE again within the last few weeks. BLE doppler ordered to r/o DVT. D/w Cardio, patient is stable for transfer to Telemetry. 10/17: Patient seen and examined, resting comfortably no new complaints. Ambulated without difficulty per patient. Will discharge once cleared by Staff Antisubmarine Officer. New changes to medication discussed in detail. No DVT noted. will treat for cellulitis of skin and soft tissues. Preventive care counselling in respect to DM and management discussed for 15 mins. Weight loss counselling provided for 15 mins pER CARDIOLOGY EVAL- pt Started ON PO LOpressor 50mg po BID also Will also resume PO Cardizem in the AM if BP permits. Discontinue home Telmisartan to allow for titration of BB/CCB. Start Eliquis 5mg BID for AF/CVA prophylaxis. Stable for transfer to tele floor. #New Onset Atrial Fibrillation with RVR #Supraventricular Tachycardia(SVT) #Hypertension - Presented with chest palpitations, generalized weakness, decreased exercise tolerance, and dyspnea on exertion - Was found in SVT in the ED, HR in the 180s. X2 doses of adenosine and cardioversion was unsuccessful - EKG revealed Afib with RVR. S/p Amio bolus and cardizem gtt - Patient Converted to SR this am, HR in the 70-80s. VSS - Cardiology consulted, appreciate recommendations - Per cardio plan to added BB and resume patient home cardizem - PO Eliquis initiated for anticoagulation - Continue blood pressure monitor per protocol - Maintain SBP less than 160 - 2D echo pending #Thrombocytopenia(POA) - Per patient this is chronic, her PCP has been monitoring it - Plt count dropped this am - No s/s of any active bleeding - H&H stable - Will continue to trend platelets and monitor H&H - PO Eliquis initiated for new onset Afib with RVR #Left Lower Extremity Redness and Swelling - LLE is swelling and red, warm to touch. - She reported that she injured her LLE last year s/p a fall. The extremity was swollen then, however, it resolved after some time. She noticed the swelling and redness from her LLE again within the last few weeks. - BLE dopper ordered to r/o DVT #Type 2 Diabetes Mellitus - Resume home metformin - BG check and SSI ACHS - Avoid hypoglycemia #Obesity Hypoventilation Syndrome - Balanced diet, risk factor reduction. - weight reduction- increase physical activity discharge - Outpatient pulmonary follow-up for sleep study. #Advance Care Planning - Disease education data, care plan, diagnoses, and prognosis were discussed with patient at the bedside. Patient is a FULL code. Patient acknowledged understanding and agreed with current care plan. Disposition: 01 HOME / SELF CARE / HOMELESS Final Discharge Diagnosis (Prints w/discharge instructions): #New Onset Atrial Fibrillation with RVR. #Supraventricular Tachycardia(SVT). #Hypertension Time spent for discharge: 35 mins Core Measure Documentation - Palliative Care Palliative Care/ Comfort Measures: Not Applicable - Core Measures Any of the following diagnoses?: none Exam - Physical Exam Narrative exam: VITAL SIGNS: Reviewed. GENERAL: The patient appears normally developed, morbidly obese vital signs as documented. HEAD: No signs of head trauma. EYES: Pupils are equal. Extraocular motions intact. EARS: Hearing grossly intact. MOUTH: Oropharynx is normal. NECK: No adenopathy, no JVD. CHEST: Chest with clear breath sounds bilaterally. No wheezes, rales, or rhonchi. CARDIAC: Regular rate and rhythm. S1 and S2, without murmurs, gallops, or rubs. VASCULAR: No Edema. Peripheral pulses normal and equal in all extremities. ABDOMEN: Soft, non tender and non distended. No rebound or guarding, and no masses palpated. Bowel Sounds normal. MUSCULOSKELETAL: Good range of motion of all major joints. Extremities without clubbing, cyanosis or edema. NEUROLOGIC EXAM: Alert and oriented x 3 No focal sensory or strength deficits. Speech normal. Follows commands. PSYCHIATRIC: Mood normal. SKIN: No warmth appreciated detail exam as documented in skin assessment Mild erythematous irritation bilateral lower extremity - Constitutional Vitals: Temp Pulse Resp BP Pulse Ox 98.0 F 91 H 16 124/68 96 10/17/21 04:25 10/17/21 04:25 10/17/21 04:25 10/17/21 04:25 10/17/21 08:00 Plan Activity: advance as tolerated, fall precautions Diet: diabetic Special Instructions: record daily weights, record daily BP diary, record blood sugar diary Care Plan Goals: must lose weight Follow up with: RON CRAMER MD [Primary Care Provider] - 7 Days RICARDA DENNEY MD [Staff Physician] - 7 Days Prescriptions: AtorvaSTATin 10 mg PO QHS #30 tablet Apixaban [Eliquis] 5 mg PO Q12HR #60 tablet cephALEXin [Keflex] 500 mg PO Q12HR #10 cap Metoprolol [Lopressor TAB] 50 mg PO BID #60 tablet Famotidine [Pepcid] 20 mg PO QDAY #30 tablet
[2021-10-17] MEDS: INSULIN LISPRO 100 UNIT/ML SUB-Q SCH ×2 (09:02→13:18)
[2021-10-17] MEDS: metFORMIN 500 MG TAB PO SCH (09:39)
[2021-10-17] MEDS: METOPROLOL TARTRATE 50 MG TAB PO SCH (09:39)
[2021-10-17] MEDS: APIXABAN 5 MG TAB PO SCH (09:39)
[2021-10-17] MEDS ORDERED: FAMOTIDINE 20 MG TAB PO SCH (10:00)
--- NOTE | 2021-10-17 10:15 | Electrocardiograph Report ---
[facility] Test Date: 2021-10-15 Test Time: 18:12:33 Pat Name: KELSIE AGUILAR Department: Room: A454 Gender: F [employer]: [birth year] : [id number] Requested By: HEMANTH QUEEN Order Number: [id number] Reading MD: Maicol Fregoso Measurements Intervals [place] Rate: 157 P: [place]: QRS: 46 QRSD: 70 T: 222 QT: 251 QTc: 406 Interpretive Statements Atrial fibrillation with rapid V-rate Repolarization abnormality, prob rate related No previous ECG available for comparison Electronically Signed On 10-17-2021 10:15:25 EDT by Maicol Fregoso
[2021-10-17 12:03] VITALS: BP 135/72
--- NOTE | 2021-10-17 12:14 | Progress Note ---
Assessment and Plan Pt is a 66-year-old female with a hx of PSVT, asthma, HTN, HLD, DM2, and morbid obesity/ROBER who presented with complaints of palpitations New Onset AF with RVR H/o PSVT HTN HLD DM2 Morbid Obesity ROBER H/o Asthma Echo 10/15/2021-EF 60 to 65%. Mild concentric LVH. Right ventricle systolic function is normal. Left and right atrium are normal in size. Plan: Telemetry reviewed maintaining sinus rhythm. Continue PO Lopressor 50mg BID. Will hold PO Cardizem at this time and defer to primary cardiologists Discontinue home Telmisartan to allow for titration of BB/CCB. Contniue Eliquis 5mg BID for AF/CVA prophylaxis. Cardiac status otherwise stable Patient's follow-up appointment with Dr. Polanco on 10/27/2021 at our [place] location. Phone #[phone] Pt seen in conjunction with Dr. Fajardo, who agrees with the assessment and plan of care. - Patient Problems (1) Atrial fibrillation with RVR Current Visit: Yes Status: Acute (2) Diabetes Current Visit: Yes Status: Acute (3) Hypertension Current Visit: Yes Status: Acute Qualifiers: Hypertension type: primary hypertension Qualified Code(s): I10 - Essential (primary) hypertension Subjective Date of service: 10/17/21 Principal diagnosis: new afib Interval history: Patient resting in bed in no acute distress. Patient reports feeling well this a.m. Sinus rhythm 80s to 90s on monitor with no events Objective Vital Signs Temp Pulse Pulse Resp BP Pulse Ox 10/17/21 11:26 97.9 F 82 20 135/72 96 10/17/21 08:00 96 10/17/21 07:42 97.8 F 18 122/52 10/17/21 04:25 98.0 F 91 H 16 124/68 94 10/16/21 23:50 98.1 F 78 14 138/70 95 10/16/21 22:00 83 97 10/16/21 20:26 97 10/16/21 19:53 98.3 F 88 14 121/57 96 10/16/21 17:30 85 15 136/71 10/16/21 17:21 94 H 12 136/71 10/16/21 17:11 94 H 15 136/71 10/16/21 17:01 94 H 22 136/71 10/16/21 16:51 92 H 17 136/71 10/16/21 16:41 91 H 18 136/71 98 10/16/21 16:39 99.0 F 10/16/21 16:31 84 20 136/71 98 10/16/21 16:21 93 H 18 136/71 98 10/16/21 16:11 76 11 L 136/71 94 10/16/21 16:00 82 82 18 136/71 99 10/16/21 15:51 86 17 135/58 97 10/16/21 15:41 80 17 135/58 97 10/16/21 15:31 88 16 135/58 97 10/16/21 15:21 87 16 135/58 97 10/16/21 15:11 83 11 L 135/58 96 10/16/21 15:00 83 18 135/58 99 10/16/21 14:51 83 18 130/56 98 10/16/21 14:41 86 22 130/56 98 10/16/21 14:31 79 12 130/56 98 10/16/21 14:21 80 11 L 130/56 98 10/16/21 14:11 84 17 130/56 98 10/16/21 14:00 87 20 130/56 96 10/16/21 13:51 79 18 135/42 96 10/16/21 13:48 97.9 F 10/16/21 13:41 83 14 135/42 98 10/16/21 13:31 82 14 135/42 97 10/16/21 13:21 79 15 135/42 98 10/16/21 13:11 77 17 135/42 98 10/16/21 13:00 80 17 135/42 96 10/16/21 12:51 85 17 145/58 99 10/16/21 12:41 82 14 145/58 98 10/16/21 12:31 84 14 145/58 97 10/16/21 12:21 83 16 145/58 98 - Physical Examination General: No Apparent Distress HEENT: Positive: EOMI, Normocephaly Neck: Negative: JVD/HJR Cardiac: Positive: Reg Rate and Rhythm Lungs: Positive: Normal Breath Sounds Neuro: Positive: Grossly Intact Abdomen: Positive: Soft. Negative: Tender Skin: Negative: Rash Musculoskeletal: No Pain Extremities: Present: upper extr. pulses. Absent: edema - Labs and Meds CBC 10/17/21 Range/Units 04:43 WBC 4.6 (4.5-11.0) K/mm3 RBC 4.62 (3.65-5.03) M/mm3 Hgb 13.9 (10.1-14.3) gm/dl Hct 43.5 H (30.3-42.9) % Plt Count 98 L (140-440) K/mm3 Comprehensive Metabolic Panel 10/17/21 Range/Units 04:43 Sodium 138 (137-145) mmol/L Potassium 4.3 (3.6-5.0) mmol/L Chloride 105.6 (98-107) mmol/L Carbon Dioxide 21 L (22-30) mmol/L BUN 9 (7-17) mg/dL Creatinine 0.6 (0.6-1.2) mg/dL Glucose 146 H (65-100) mg/dL Calcium 8.9 (8.4-10.2) mg/dL - Imaging and Cardiology EKG: report reviewed, image reviewed Echo: report reviewed - Telemetry EKG Rhythm: Sinus Rhythm - EKG Sinus rhythms and dysrhythmias: sinus rhythm
== END 2021-10-17 12:35 | disposition home or self-care (01) | DRG 308 ==
LOC: ED 17:35 → CC1 20:17 → 4A 10-16 17:51
PROVIDERS: ADMIT Internal Medicine; ATTEND Internal Medicine
PROC: 5A2204Z Restoration of Cardiac Rhythm, Single (ICD-10-PCS; principal; 2021-10-15)
DX: I48.91 Unspecified atrial fibrillation (principal); I50.31 Acute diastolic (congestive) heart failure; E66.2 Morbid (severe) obesity with alveolar hypoventilation; Z68.41 Body mass index [BMI] 40.0-44.9, adult; I47.1 Supraventricular tachycardia; J45.909 Unspecified asthma, uncomplicated; E11.9 Type 2 diabetes mellitus without complications; E88.81 Metabolic syndrome and other insulin resistance; E78.5 Hyperlipidemia, unspecified; Z95.1 Presence of aortocoronary bypass graft; Z98.61 Coronary angioplasty status; D69.6 Thrombocytopenia, unspecified; Z82.49 Family history of ischemic heart disease and other diseases of the circulatory system; Z83.3 Family history of diabetes mellitus; I11.0 Hypertensive heart disease with heart failure
CPT/HCPCS: 36415; 80048; 80053; 82962; 83735; 84100; 84443; 84484; 85014; 85018; 85025; 85027; 85049; 85610; 85730; 93005; 93306; 94640; 94760; G0378; J3490; J7060; Q9967; C8929; J0282; J1644; J1815; J3010; J3475